=== PATIENT | male | born 1960 | race Caucasian/White ===

== ENCOUNTER 2024-04-09 13:09 | Day surgery (SDC) | payer MEDICARE, OTHER ==
[2024-04-09] MEDS ORDERED: Xylocaine-Mpf 2% 5 Ml Vial IJ ONE (13:10)
[2024-04-09] MEDS ORDERED: DIPRIVAN 200 MG/20 ML IV ONE (15:21)
--- NOTE | 2024-04-09 16:35 | XRAY ---
Indication: Bilateral L4-S1 MBB. Intraoperative fluoroscopy provided for 10 seconds. Single digital spot image submitted for interpretation demonstrates posterior needle tips projecting over the expected left and right L4-S1 nerve roots. Correlate with intraoperative findings/report.
--- NOTE | 2024-04-09 16:45 | XRAY ---
10 seconds of fluoroscopy was used in surgery for a bilateral L4-S1 MBB.
== END 2024-04-09 15:46 | disposition home or self-care (01) ==
LOC: SDC-PAIN 13:09
PROVIDERS: ATTEND Psychiatry & Neurology Pain Medicine
DX: M47.816 Spondylosis without myelopathy or radiculopathy, lumbar region (principal)
CPT/HCPCS: 64493; 64494; 72020; 77002; J2704

== ENCOUNTER 2024-05-07 12:31 | Day surgery (SDC) | payer MEDICARE, OTHER ==
[2024-05-07] MEDS ORDERED: BUPIVACAINE 0.5% VIAL IJ ONE (12:32)
[2024-05-07] MEDS ORDERED: DIPRIVAN 200 MG/20 ML IV ONE (14:23)
--- NOTE | 2024-05-07 16:29 | XRAY ---
Indication: Bilateral L4-S1 MBB. Intraoperative fluoroscopy provided for 15 seconds. Single digital spot image submitted for interpretation demonstrates posterior needle tips projecting over the expected left and right L4-S1 nerve roots. Correlate with intraoperative findings/report.
--- NOTE | 2024-05-07 17:11 | XRAY ---
15 seconds of fluoroscopy was used in surgery for a bilateral L4-S1 MBB.
== END 2024-05-07 14:54 | disposition home or self-care (01) ==
LOC: SDC-PAIN 12:31
PROVIDERS: ATTEND Psychiatry & Neurology Pain Medicine
DX: M47.817 Spondylosis without myelopathy or radiculopathy, lumbosacral region (principal)
CPT/HCPCS: 64493; 64494; 72020; 77002; J2704

== ENCOUNTER 2024-07-09 11:10 | Day surgery (SDC) | payer MEDICARE, OTHER ==
[2024-07-09] MEDS ORDERED: LIDOCAINE HCL 1% AMPUL 5 ML IJ ONE (11:11)
[2024-07-09] MEDS ORDERED: Depo-Medrol 40 MG/ML IM ONE (11:11)
[2024-07-09] MEDS ORDERED: BUPIVACAINE 0.5% VIAL IJ ONE (11:11)
[2024-07-09] MEDS ORDERED: propofoL IV ONE (12:27)
--- NOTE | 2024-07-09 13:59 | XRAY ---
Indication: Left L4-S1 RFA. Intraoperative fluoroscopy provided for 12 seconds. 4 digital spot images submitted for interpretation demonstrates posterior needle tips projecting over expected left L4-S1 nerve roots. Correlate with intraoperative findings/report. Incidental right iliac artery stent.
--- NOTE | 2024-07-09 14:59 | XRAY ---
12 seconds of fluoroscopy was used in surgery for a left L4-S1 RFA.
== END 2024-07-09 13:00 | disposition home or self-care (01) ==
LOC: SDC-PAIN 11:10
PROVIDERS: ATTEND Psychiatry & Neurology Pain Medicine
DX: M47.817 Spondylosis without myelopathy or radiculopathy, lumbosacral region (principal)
CPT/HCPCS: 64635; 64636; 72100; 77002; J2704

== ENCOUNTER 2024-07-10 10:56 | Day surgery (SDC) | payer MEDICARE, OTHER ==
[2024-07-10] MEDS ORDERED: Depo-Medrol 40 MG/ML IM ONE (10:57)
[2024-07-10] MEDS ORDERED: BUPIVACAINE 0.5% VIAL IJ ONE (10:57)
[2024-07-10] MEDS ORDERED: LIDOCAINE HCL 1% AMPUL 5 ML IJ ONE (10:57)
[2024-07-10] MEDS ORDERED: propofoL IV ONE (12:35)
--- NOTE | 2024-07-10 13:40 | XRAY ---
Indication: Right L4-S1 RFA. Intraoperative fluoroscopy provided for 14 seconds. 3 digital spot image submitted for interpretation demonstrates posterior needle tips projecting over expected right L4-S1 nerve roots. Correlate with intraoperative findings/report. Incidental right iliac artery stent.
--- NOTE | 2024-07-10 14:04 | XRAY ---
14 seconds of fluoroscopy was used in surgery for a right L4-S1 RFA.
== END 2024-07-10 13:07 | disposition home or self-care (01) ==
LOC: SDC-PAIN 10:56
PROVIDERS: ATTEND Psychiatry & Neurology Pain Medicine
DX: M47.816 Spondylosis without myelopathy or radiculopathy, lumbar region (principal)
CPT/HCPCS: 64635; 64636; 72100; 77002; J2704

== ENCOUNTER 2024-10-22 06:16 | Day surgery (SDC) | payer MEDICARE, OTHER ==
[2024-10-22] MEDS ORDERED: LIDOCAINE HCL 1% 50 MG/5 ML VL IJ ONE (06:17)
[2024-10-22] MEDS ORDERED: Sodium Chloride 0.9(Preservative Free) 10 ML IJ ONE (06:17)
[2024-10-22] MEDS ORDERED: CEFAZOLIN 2 GM/100 ML NaCl 2 GM/100 ML IVPB IV SCH (07:00)
[2024-10-22] MEDS ORDERED: BACIGUENT 30 GM ONE (07:29)
[2024-10-22] MEDS ORDERED: propofoL IV ONE (08:13)
[2024-10-22] MEDS ORDERED: Lactated Ringers 1,000 ML IV ONE (08:48)
--- NOTE | 2024-10-22 10:58 | XRAY ---
Indication: Spinal cord stimulator trial. Intraoperative fluoroscopy provided for 45 seconds. 9 digital spot images submitted for interpretation demonstrates posterior introducer needle tip projecting thoracolumbar lumbar junction. Single epidural lead inserted with tip positioned approximately T9-T10 level. Correlate with intraoperative findings/report.
--- NOTE | 2024-10-22 11:02 | XRAY ---
45 seconds of fluoroscopy was used in surgery for a spinal cord stimulator trial.
== END 2024-10-22 09:13 | disposition home or self-care (01) ==
LOC: SDC-PAIN 06:16 → EDSTATUS 13:30
PROVIDERS: ATTEND Psychiatry & Neurology Pain Medicine
DX: M96.1 Postlaminectomy syndrome, not elsewhere classified (principal)
CPT/HCPCS: 63650; 72100; C1897; J2704; A9270-GY